=== PATIENT | male | born 1955 | race Asian ===

== ENCOUNTER 2016-07-28 06:02 | Day surgery (SDC) | payer OTHER ==
[~2016-07-28] VITALS: Ht 167.6 cm; Wt 65.0 kg
[2016-07-28 06:44] VITALS: BP 160/90; PULSE 52; RESP 20; TEMP 98.2; O2SAT 95
[2016-07-28] MEDS ORDERED: POVIDONE IODINE 5% (ANTISEPSIS KIT) 4 APPLICATIONS EACH NARE SCH (07:00)
[2016-07-28] MEDS ORDERED: VANCOMYCIN 1000 MG/NS 250 ML - implanted port/tunneled catheter IV SCH ×2 (07:00)
[2016-07-28] MEDS ORDERED: SODIUM CHLORIDE 0.9% 1000 ML IV SCH (07:00)
[2016-07-28] MEDS ORDERED: ceFAZolin 2 GM PREMIX 50 ML - implanted port/tunneled catheter insertion IV SCH (07:00)
[2016-07-28] MEDS ORDERED: CHLORHEXIDINE GLUCONATE 2 % 1 PACK (2 CLOTHS) TOPICAL SCH (07:00)
[2016-07-28 07:28] LABS: PROTHROMBIN TIME - PATIENT 10.1 SEC (9.8-11.6)
[2016-07-28 07:31] LABS: INTERNATIONAL NORMALIZED RATIO 0.9 RATIO
[2016-07-28] MEDS ORDERED: fentaNYL CITRATE 250 MCG/5 ML AMP ONE (08:00)
[2016-07-28] MEDS ORDERED: MIDAZOLAM HCL 5 MG/5 ML VIAL ONE (08:00)
[2016-07-28] MEDS ORDERED: LIDOCAINE 1%/EPINEPHrine 1:100,000 SOLN 20 ML VIAL ONE (08:22)
[2016-07-28 09:10] VITALS: BP 144/77; PULSE 59; RESP 20; TEMP 97.9; O2SAT 92
--- NOTE | 2016-07-28 09:15 | PD.RAD ---
Post Procedure Progress Note Pre Procedure Diagnosis: (1) Gastric carcinoma Post Procedure Diagnosis: (1) Gastric carcinoma Procedure Date: Jul 28, 2016 Supervising Radiologist: Hans Abdi Proceduralist/Assist: Amina Mosley RT(R), RT Kyle(R)() Anesthesia: Local, Conscious Sedation Plan of Activity Patient to Unit: ROPU Patient Condition: Good See PACS Report for procedural detail/treatment Central Venous Access Device Procedure 1 Right Internal Jugular Infusaport Placement single lumen Palestinian: 8 Hans Abdi MD Jul 28, 2016 09:15
[2016-07-28 09:25] VITALS: BP 117/65; PULSE 57; RESP 20; O2SAT 93
[2016-07-28 09:55] VITALS: BP 135/76; PULSE 61; RESP 20; O2SAT 93
[2016-07-28 10:25] VITALS: BP 134/73; PULSE 54; RESP 20; O2SAT 93
--- NOTE | 2016-07-28 10:37 | RADRPT ---
EXAM DATE/TIME: 07/28/2016 07:45 [facility] COMPARISON: No previous studies available for comparison. INDICATIONS : Patient with gastric adenocarcinoma in need of port placement for treatment. MEDICAL HISTORY : Gastric caner Liver lesions Peritoneal lesions SURGICAL HISTORY : Laparoscopy with robotic distal gastrectomy and loop gastrojejunostomy with excision of pancreatic ca psule biopsies of liver and peritoneal lesions. ENCOUNTER: Initial ACUITY: 3 months PAIN SCORE: FLUORO TIME: 0.3 minutes SEDATION TIME: 30 minutes ACCESS: Right internal jugular vein SEDATION: 1.) 2 mg midazolam (Versed) IV 2.) 100 mcg fentanyl (Sublimaze) IV Prophylactic antibiotics were administered with appropriate pre-procedure timing. Vancomycin within 2 hours of procedure, Ancef (or alternative) within 1 hour of procedure. DEVICE: 1. 8 Swiss single lumen [id number] PROCEDURE : 1. Continuous pulse oximetry and EKG monitoring. 2. Intravenous conscious sedation. 3. Ultrasound guidance for venous access. 4. Fluoroscopic guided implantable central venous port placement. The patient was placed supine. The neck was prepped in sterile fashion. Full sterile technique was u sed, including cap, mask, sterile gloves and gown, and a large sterile sheet. Hand hygiene and 2% ch lorhexidine Betadine was utilized per protocol for cutaneous antisepsis with appropriate dry time for site. The skin and subcutaneous tissues were infiltrated with local anesthetic solution. Under direct ultrasound guidance, central venous access was accomplished in the targeted vessel. The ultrasound images depicting access guidance were stored and saved to PACS for permanent record. A s ubcutaneous pocket was created using blunt dissection. The port was introduced to the pocket. The c atheter tubing was fed through a subcutaneous tunnel to the venotomy site. The catheter tubing was c ut to a suitable length and then was introduced through a valved Peel-Away sheath and positioned with catheter tubing tip at the cavo-atrial junction level. The pocket incision was closed with subcutic ular Vicryl suture. Steri-Strips were applied. The port was flushed and locked with heparin solutio n per protocol. Sterile dressing was applied to the site. The patient tolerated the procedure well. Conscious sedation was performed with the prescribed dosages and duration as above. The patient marybeth ated the procedure well and there were no complications. EKG and oximetry remained stable throughout the procedure. The patient was sent to post anesthesia recovery in stable condition. CONCLUSION: Uncomplicated ultrasound and fluoroscopic guided implanted central venous port catheter placement as described in detail above. An 8 Swiss Power port was placed. Hans Abdi MD on July 28, 2016 at 10:36 Board Certified Radiologist. This report was verified electronically.
== END 2016-07-28 10:58 | disposition home or self-care (01) ==
LOC: HRIP 06:02 → HROP 06:02
PROVIDERS: ATTEND Internal Medicine Hematology & Oncology
DX: Z45.2 Encounter for adjustment and management of vascular access device (principal); C16.9 Malignant neoplasm of stomach, unspecified; Z79.01 Long term (current) use of anticoagulants
CPT/HCPCS: 36561; 76937; 77001; 85610; 85730; 99152; 99153; C1788; J0690; J1642; J2250; J3010; J3370; J7030; J7050